=== PATIENT | female | born 1955 | race Caucasian/White ===

== ENCOUNTER 2019-07-23 09:06 | Day surgery (SDC) | payer OTHER ==
[~2019-07-23 09:06] MED LIST: PROPOFOL INJ 200 MG/20 ML VIAL IV ONE
[2019-07-23] MEDS ORDERED: RINGERS SOLUTION,LACTATED 1,000 ML IV PRN (09:07)
[2019-07-23] MEDS ORDERED: LIDOCAINE 0.5% INJ-PF (5 MG/ML) 50 ML SDV SUBCUT PRN (09:15)
[2019-07-23] MEDS ORDERED: SCOPOLAMINE HYDROBROMIDE 1.5 MG PATCH.TD72 TD ONE (10:00)
[2019-07-23 10:37] VITALS: BP 129/71
--- NOTE | 2019-07-23 11:33 | Operative Report ---
Operative Report DATE OF SURGERY: 07/23/19 Operative Report: The risks, benefits and alternatives of the procedure including the risk of bleeding, perforation requiring surgery have been explained to the patient in detail and informed consent has been obtained. The patient is placed in a left, lateral decubital position. Timeout was called. Propofol medication is administered. Rectal examination is done which did not reveal any masses, tears or fissures. An Olympus videoscope was introduced into the patient's rectum. Scope was then carefully advanced all the way to the cecum. Cecum was identified by the usual anatomical landmarks including the ileocecal valve as well as the appendiceal office. Photodocumentation is obtained. Scope was then sequentially pulled back via the various segments of the colon including the ascending colon, hepatic flexure, transverse colon, splenic flexure, descending colon finding to the rectosigmoid portions of the colon. Retroflexion maneuver is performed. PREOPERATIVE DIAGNOSIS: Colorectal cancer screening POSTOPERATIVE DIAGNOSIS: Slight thickening of the ileocecal valve status post biopsy rule out adenomatous lesion. Internal hemorrhoids OPERATION: Colonoscopy with biopsy SURGEON: LI KEITH ANESTHESIA: LMAC TISSUE REMOVED OR ALTERED: As noted above. COMPLICATIONS: None. ESTIMATED BLOOD LOSS: None. INTRAOPERATIVE FINDINGS: As noted above. PROCEDURE: Patient tolerated the procedure well. No immediate postprocedure complications are noted. Patient is discharged in good condition. Discharge date 07/23/2019. Discharge diet: Regular. Discharge activity: Regular. 2 to 3-week follow-up to discuss findings. Patient is instructed to call the office or proceed to the emergency room should there be any further questions. Wait on the pathology. Possible 5-year surveillance colonoscopy.
== END 2019-07-23 10:44 | disposition home or self-care (01) ==
LOC: END 09:06
PROVIDERS: ATTEND Internal Medicine Gastroenterology
DX: Z12.11 Encounter for screening for malignant neoplasm of colon (principal); D12.6 Benign neoplasm of colon, unspecified; K64.8 Other hemorrhoids; Z86.010 Personal history of colon polyps; Z87.891 Personal history of nicotine dependence; I10 Essential (primary) hypertension; Z88.0 Allergy status to penicillin
CPT/HCPCS: 45380; 88305 ×2; 00812; J2704; 812

== ENCOUNTER → 2019-08-28 | Day surgery (SDC) | payer OTHER ==
[2019-08-18 10:45] LABS: APPEARANCE,URINE CLEAR; BILIRUBIN,URINE NEGATIVE (NEGATIVE); COLOR,URINE YELLOW; GLUCOSE, URINE NEGATIVE (NEGATIVE); KETONES,URINE NEGATIVE (NEGATIVE); LEUKOCYTE ESTERASE,URINE SMALL (NEGATIVE); NITRITE,URINE NEGATIVE (NEGATIVE); PROTEIN,URINE NEGATIVE (NEGATIVE); URINE SPECIFIC GRAVITY 1.012; UROBILINOGEN,URINE NEGATIVE mg/dL (<2.0)
[2019-08-18 10:45] LABS: HEMOGLOBIN 13.6 g/dL (12.0-15.5); MEAN CORPUSCULAR HEMOGLOBIN 29.2 pg (27.0-33.4); MEAN CORPUSCULAR HGB CONC 33.1 g/dL (32.0-36.0); MEAN CORPUSCULAR VOLUME 88 fl (80-97); PLATELET COUNT 265 10^3/uL (150-450); RED BLOOD COUNT 4.65 10^6/uL (3.72-5.28); RED CELL DISTRIBUTION WIDTH 14.3 % (11.5-14.0); WHITE BLOOD COUNT 6.5 10^3/uL (4.0-10.5)
[~2019-08-28] MED LIST changes: +FENTANYL CITRATE INJ/PF 250 MCG/5 ML AMPULE ONE; +LACTATED RINGERS 1000 ML IV PRN; +LIDOCAINE 0.5% INJ-PF (5 MG/ML) 50 ML SDV SUBCUT PRN; +MIDAZOLAM 2 MG/2 ML INJ ONE; +MORPHINE SULFATE 10 MG/ML INJ ONE; +SCOPOLAMINE HYDROBROMIDE 1.5 MG PATCH.TD72 ONE
[2019-08-28 06:44] VITALS: BP 155/92
--- NOTE | 2019-08-28 07:34 | EKG REPORT ---
SEVERITY:- ABNORMAL ECG - SINUS RHYTHM CONSIDER LEFT VENTRICULAR HYPERTROPHY ST ELEVATION SUGGESTS PERICARDITIS (UNLIKELY) CLINICAL CORRELATION NEEDED. : Confirmed by: Royal Linn MD 28-Aug-2019 07:33:58
--- NOTE | 2019-08-28 08:18 | RADIOLOGY REPORT (SQ) ---
EXAM DESCRIPTION: CHEST SINGLE VIEW COMPLETED DATE/TIME: 08/28/2019 7:34 am REASON FOR STUDY: PRE-OP COMPARISON: None. EXAM PARAMETERS: NUMBER OF VIEWS: One view. TECHNIQUE: Single frontal radiographic view of the chest acquired. RADIATION DOSE: NA LIMITATIONS: None. FINDINGS: LUNGS AND PLEURA: No opacities, masses or pneumothorax. No pleural effusion. MEDIASTINUM AND HILAR STRUCTURES: No masses. Contour normal. HEART AND VASCULAR STRUCTURES: Heart normal in size. Normal vasculature. BONES: No acute findings. HARDWARE: None in the chest. OTHER: No other significant finding. IMPRESSION: NO ACUTE RADIOGRAPHIC FINDING IN THE CHEST. TECHNICAL DOCUMENTATION: JOB ID: [id number] [employer]- All Rights Reserved Reading location - IP/workstation name: [email or web address]
== END ==
LOC: OROUT 05:38
PROVIDERS: ATTEND Obstetrics & Gynecology
DX: R10.2 Pelvic and perineal pain (principal); R94.31 Abnormal electrocardiogram [ECG] [EKG]; Z53.9 Procedure and treatment not carried out, unspecified reason; Z88.0 Allergy status to penicillin
CPT/HCPCS: 36415; 71045; 81005; 85027; 86850; 86900; 86901; 93005; 93010; J2250; J2270; J2704; J3010

== ENCOUNTER 2019-09-11 08:33 | Day surgery (SDC) | payer OTHER ==
[~2019-09-11 08:33] MED LIST changes: -FENTANYL CITRATE INJ/PF 250 MCG/5 ML AMPULE ONE; -MIDAZOLAM 2 MG/2 ML INJ ONE; -MORPHINE SULFATE 10 MG/ML INJ ONE; -PROPOFOL INJ 200 MG/20 ML VIAL IV ONE; -SCOPOLAMINE HYDROBROMIDE 1.5 MG PATCH.TD72 ONE
[2019-09-11] MEDS ORDERED: SCOPOLAMINE HYDROBROMIDE 1.5 MG PATCH.TD72 TD PRN (08:42)
[2019-09-11] MEDS ORDERED: PROPOFOL INJ 200 MG/20 ML VIAL IV ONE (09:05)
[2019-09-11] MEDS ORDERED: MIDAZOLAM 2 MG/2 ML INJ ONE (09:05)
[2019-09-11] MEDS ORDERED: FENTANYL CITRATE INJ/PF 250 MCG/5 ML AMPULE ONE (09:05)
[2019-09-11] MEDS ORDERED: HYDROMORPHONE HCL INJ/PF 2 MG/ML AMPULE ONE (09:05)
[2019-09-11] MEDS ORDERED: SCOPOLAMINE HYDROBROMIDE 1.5 MG PATCH.TD72 ONE (09:07)
[2019-09-11] MEDS ORDERED: DIPHENHYDRAMINE HCL 50 MG/ML VIAL IV PRN (10:49)
[2019-09-11] MEDS ORDERED: MEPERIDINE HCL/PF INJ 25 MG/1 ML DISP.SYRIN IV PRN (10:49)
[2019-09-11] MEDS ORDERED: MORPHINE SULFATE 10 MG/ML INJ IV PRN (10:49)
[2019-09-11] MEDS ORDERED: FENTANYL CITRATE INJ/PF 100 MCG/2 ML AMPUL IV PRN ×3 (10:49)
[2019-09-11] MEDS ORDERED: PROMETHAZINE HCL INJ 25 MG/1 ML VIAL IV PRN (10:49)
--- NOTE | 2019-09-11 12:19 | Operative Report ---
Operative Report DATE OF SURGERY: 09/11/19 PREOPERATIVE DIAGNOSIS: Left ovarian cyst, pelvic adhesions. Pelvic pain POSTOPERATIVE DIAGNOSIS: Same OPERATION: Robotic assisted bilateral salpingo-oophorectomy with lysis of adhesions SURGEON: CASH MANZANO 1ST LOGGING ENGINEER: MARGARITO VÁZQUEZ ANESTHESIA: GA TISSUE REMOVED OR ALTERED: Bilateral fallopian tube and ovaries COMPLICATIONS: None ESTIMATED BLOOD LOSS: 100 cc INTRAOPERATIVE FINDINGS: Large left ovarian cyst with multiple adhesions to the pelvic sidewall, adhesions of the large intestines epiploica to the vaginal cuff. Right ovary with adhesions to the vaginal cuff PROCEDURE: Patient was taken to the operating room prepared and draped in a normal sterile fashion in a dorsal lithotomy position. A Marshall catheter was placed to gravity. Gloves were changed and attention was turned to the upper portion of the case. Umbilical skin incision was made with an 11 blade scalpel and carried through to the underlying layer of fascia with Sheikh scissors. The fascia was grasped with 2 Jacquie's is with the Sheikh scissors. Incision was extended laterally with the Mayos to accommodate a GelPort. 2 stay sutures were placed at each apex for leisure purposes. GelPort was placed in the normal fashion and was inflated with approximately 2 L of CO2 gas through the air seal. The camera was introduced through the camera port and the patient was placed in steep Trendelenburg. Under direct visualization 2 5 mm ports were placed approximately 10 cm on either side of the umbilicus. The robot was docked and instruments were placed with the monopolar scissors on the patient's right and the bipolar fenestrated on the patient's left. The large ovarian cyst was first noted forward this is where the procedure was started. And with sharp and blunt dissection of the cyst from the pelvic sidewall monopolar scissors and blunt dissection as needed. Until the IP ligament could be identified. There was difficulty in identifying the IP ligament and ensuring that there was no ureter trapped through the adhesions. For the decision was made to suction out the contents of the ovarian cyst more easily identify normal anatomy. The cyst was transected using the monopolar scissors and the contents were suctioned using the laparoscopic suction process manager. This was completed the IP ligament could be more easily identified and I was more sure that there was no ureter involvement therefore the IP ligament was transected using the bipolar fenestrated and the monopolar scissors and hemostasis the inferior aspect of the ovarian cyst wall was noted to be adhesed to the left aspect of the patient's vaginal cuff this was transected using monopolar scissors hemostasis was maintained. Once this was completed the specimen was passed off through the accessory port. Tension was then turned to the right adnexa and noted that there was several epiploica of the descending bowel that was attached to the vaginal cuff this was freed using some blunt dissection and monopolar scissors as needed. There were no complications with this dissection. The IP ligament was then easily identified and coagulated using the bipolar fenestrated. Polar scissors were then used to transect the IP ligament. The rest of the ovarian and fallopian tube were transected using the monopolar scissors at the vaginal cuff and the bipolar was used to coagulate as needed. The specimen was completely freed it was also removed through the accessory port. The pelvic cavity was then cut copiously irrigated. To be intact. Was a little bleeding noted at the area of surgery on the left and this was easily repaired pared using monopolar scissors as coagulation. This is of Interceed were placed along the vaginal cuff to help prevent adhesions in the future. the procedure was then concluded. The fascia was closed with the 2 stay sutures of 0 Vicryl was closed at all 3 sites using 4-0 Vicryl. Tolerated procedure well sponge lap and needle counts were correct x2. Patient was taken to recovery in stable condition..
[2019-09-11] MEDS ORDERED: IBUPROFEN 800 MG TABLET PO PRN (12:40)
[2019-09-11] MEDS ORDERED: OXYCODONE-ACETAMINOPHEN 5-325 MG TABLET PO PRN ×2 (12:41)
[2019-09-11] MEDS ORDERED: MORPHINE SULFATE 10 MG/ML INJ IM PRN (12:44)
[2019-09-11] MEDS ORDERED: FENTANYL CITRATE INJ/PF 100 MCG/2 ML AMPUL ONE (12:49)
[2019-09-11] MEDS ORDERED: KETOROLAC TROMETHAMINE INJ/PF 30 MG/1 ML SDV ONE (12:52)
[2019-09-11] MEDS ORDERED: ROCURONIUM BROMIDE INJ 50 MG/5 ML VIAL IV ONE ×2 (13:28→13:29)
[2019-09-11] MEDS ORDERED: GLYCOPYRROLATE 1 MG/5 ML VIAL ONE (13:28)
[2019-09-11] MEDS ORDERED: NEOSTIGMINE METHYLSULFATE 10 MG/10 ML VIAL ONE (13:28)
[2019-09-11] MEDS ORDERED: DEXAMETHASONE SOD PHOSPHATE INJ 4 MG/1 ML VIAL ONE ×2 (13:28→13:29)
[2019-09-11] MEDS ORDERED: SUCCINYLCHOLINE CHLORIDE INJ 200 MG/10 ML VIAL ONE ×2 (13:28→13:29)
[2019-09-11] MEDS ORDERED: ONDANSETRON HCL INJ/PF 4 MG/2 ML SDV ONE ×2 (13:28→13:29)
[2019-09-11] MEDS ORDERED: OXYCODONE-ACETAMINOPHEN 5-325 MG TABLET ONE (14:11)
[2019-09-11 15:28] VITALS: BP 125/62
== END 2019-09-11 15:15 | disposition home or self-care (01) ==
LOC: OROUT 08:33
PROVIDERS: ATTEND Obstetrics & Gynecology
DX: N73.6 Female pelvic peritoneal adhesions (postinfective) (principal); D27.1 Benign neoplasm of left ovary; R10.2 Pelvic and perineal pain; Z88.0 Allergy status to penicillin; Z79.899 Other long term (current) drug therapy; I10 Essential (primary) hypertension
CPT/HCPCS: 58661; S2900; 36415; 840; 86850; 86900; 86901; 88302; 88305; A4649; C1765; J0330; J1100; J1170; J1885; J2250; J2405; J2704; J2710; J3010; J3490